=== PATIENT | male | born 1990 | race Caucasian/White ===

== ENCOUNTER 2019-01-02 09:13 | Emergency (ER) | payer SELFPAY ==
[~2019-01-02] VITALS: Ht 182.9 cm; Wt 90.0 kg
[~2019-01-02 09:13] MED LIST: AMOX1TAB10 PO; IBUP800T48 PO
[2019-01-02 09:28] VITALS: BP 152/72; PULSE 99; RESP 18; Ht 182.9 cm; Wt 90.0 kg
[2019-01-02] MEDS ORDERED: ACETAMINOPHEN 325 MG TAB PO ONE (10:30)
[2019-01-02] MEDS ORDERED: LIDOCAINE 1% (MPF) 5 ML VIAL INJ ONE (11:00)
[2019-01-02] MEDS ORDERED: CEFTRIAXONE 1 GM INJ IM ONE (11:00)
== END 2019-01-02 11:28 | disposition home or self-care (01) ==
LOC: FTE 09:13
DX: J02.0 Streptococcal pharyngitis (principal); B95.0 Streptococcus, group A, as the cause of diseases classified elsewhere
CPT/HCPCS: 87400; 87880; J0696; 96372